=== PATIENT | male | born 1950 | race Caucasian/White ===

== ENCOUNTER → 2017-03-16 | Outpatient (CLI) | payer MEDICARE, OTHER ==
[~2017-03-16] MED LIST: AMLO5TAB2 PO; CYTRA PO; HYDR-3910 PO; LEVA1TAB2 PO; LIPI20TA PO; MULTCAP PO; OXYB5TAB10 PO; RANI150T PO; ROXI1TAB2 PO; SENO8.6T5 PO; TYLE650T25 PO; metoprolol OR
[2017-03-16 13:00] LABS: CREATININE FOR GFR 2.02 MG/DL (0.70-1.30); GLOMERULAR FILTRATION RATE 35.5 (>49)
== END ==
LOC: M SMT 10:31
PROVIDERS: ATTEND Urology
DX: N13.5 Crossing vessel and stricture of ureter without hydronephrosis (principal)

== ENCOUNTER 2017-04-28 07:49 | Outpatient (RCR) | payer MEDICARE, OTHER | END 2017-04-29 | LOC: M PT 07:49 | PROVIDERS: ATTEND Family Medicine | DX: Z51.89 Encounter for other specified aftercare (principal); M75.42 Impingement syndrome of left shoulder | CPT/HCPCS: 97110; 97162; G8978; G8979 ==

== ENCOUNTER 2017-05-20 08:30 | Outpatient (RCR) | payer MEDICARE, OTHER | END 2017-05-29 | LOC: M PT 08:30 | PROVIDERS: ATTEND Family Medicine | DX: Z51.89 Encounter for other specified aftercare (principal); M25.512 Pain in left shoulder; M75.42 Impingement syndrome of left shoulder | CPT/HCPCS: 97110; G8978; G8979; G8980 ==

== ENCOUNTER 2017-07-19 09:40 | Day surgery (SDC) | payer MEDICARE, OTHER ==
[~2017-07-19] VITALS: Ht 175.3 cm; Wt 90.3 kg
[~2017-07-19 09:40] MED LIST changes: +CHLO25TA PO; +CYTRA 2 PO; +FAMO40TA3 PO; +LISI-542 PO; +METO1TAB7 PO; +POTA1TAB14 PO; +VITATAB11 PO
[2017-07-19] MEDS ORDERED: NS 1,000 ML IV ONE (10:00)
[2017-07-19] MEDS ORDERED: LIDOCAINE 2% INJ 100 MG/5 ML SDV (FOR ANES.) As Ordered ONE (11:21)
[2017-07-19] MEDS ORDERED: PROPOFOL 200 MG/20 ML VIAL As Ordered ONE ×2 (11:21→11:30)
--- NOTE | 2017-07-19 11:40 | ROOR ---
Patient Name: Avni De Jesus Procedure Date: 07/19/2017 11:16 AM Date of : 1950 Age: 66 Room: [facility] Gender: Male Note Status: Finalized Procedure: Total Colonoscopy to Cecum Indications: Colon cancer screening in patient at increased risk: Colorectal cancer in brother, High risk colon cancer surveillance: Personal history of colonic polyps, Last colonoscopy: 2011 Providers: Law Carrera MD Referring MD: MILTON ROSE MD Requesting Provider: Medicines: Monitored Anesthesia Care Complications: No immediate complications. Procedure: Pre-Anesthesia Assessment: - The heart rate, respiratory rate, oxygen saturations, blood pressure, adequacy of pulmonary ventilation, and response to care were monitored throughout the procedure. The Colonoscope was introduced through the anus and advanced to the cecum, identified by appendiceal orifice and ileocecal valve. The colonoscopy was performed without difficulty. The patient tolerated the procedure well. The quality of the bowel preparation was excellent. Findings: The perianal and digital rectal examinations were normal. Non-bleeding internal hemorrhoids were found during retroflexion. The hemorrhoids were small and Grade I (internal hemorrhoids that do not prolapse). There was a medium-sized lipoma, at 10 cm proximal to the anus. The exam was otherwise without abnormality. Impression: - Non-bleeding internal hemorrhoids. - Medium-sized lipoma at 10 cm proximal to the anus. - The examination was otherwise normal. - No specimens collected. - The exam was otherwise normal to the cecum. Recommendation: - Patient has a contact number available for emergencies. The signs and symptoms of potential delayed complications were discussed with the patient. Return to normal activities tomorrow. Written discharge instructions were provided to the patient. - High fiber diet. - Discharge patient to home. - Continue present medications. - Repeat colonoscopy in 5 years for screening purposes. - Return to referring physician. - The findings and recommendations were discussed with the patient's family. Law Carrera MD Law Carrera MD 07/19/2017 11:40:25 AM This report has been signed electronically. Number of Addenda: 0 Note Initiated On: 07/19/2017 11:16 AM Estimated Blood Loss: Estimated blood loss: none.
[2017-07-19 11:55] VITALS: BP 123/74
== END 2017-07-19 12:10 | disposition home or self-care (01) ==
LOC: M OPP 09:40
PROVIDERS: ATTEND Internal Medicine Gastroenterology
DX: Z12.11 Encounter for screening for malignant neoplasm of colon (principal); Z86.010 Personal history of colon polyps; Z80.0 Family history of malignant neoplasm of digestive organs; D17.5 Benign lipomatous neoplasm of intra-abdominal organs; K64.0 First degree hemorrhoids; K21.9 Gastro-esophageal reflux disease without esophagitis; I10 Essential (primary) hypertension; E78.00 Pure hypercholesterolemia, unspecified; Z87.891 Personal history of nicotine dependence; Z79.899 Other long term (current) drug therapy

== ENCOUNTER → 2017-10-27 | Outpatient (CLI) | payer MEDICARE, OTHER ==
[2017-10-27 13:47] LABS: ANION GAP 6 MEQ/L (8-16); APPEARANCE, URINE CLEAR (CLEAR); BACTERIA, URINE AUTO NEGATIVE (NEGATIVE); BILIRUBIN, URINE AUTO NEGATIVE (NEGATIVE); BLOOD UREA NITROGEN 33 MG/DL (7-18); BLOOD, URINE BLOOD NEGATIVE (NEGATIVE); CARBON DIOXIDE LEVEL 31 MEQ/L (21-32); CHLORIDE LEVEL 102 MEQ/L (98-107); COLOR, URINE YELLOW (YELLOW); GLUCOSE, FASTING 101 MG/DL (70-100); GLUCOSE, URINE (UA) AUTO NEGATIVE (NEGATIVE); KETONE, URINE AUTO NEGATIVE (NEGATIVE); LEUKOCYTE ESTERASE, URINE AUTO NEGATIVE (NEGATIVE); NITRITE, URINE AUTO NEGATIVE (NEGATIVE); PROTEIN, URINE AUTO NEGATIVE (NEGATIVE); PSA SCREENING 0.47 NG/ML (< 4.0); RBC, URINE AUTO 0 /HPF (0-3); SODIUM LEVEL 139 MEQ/L (136-145); SPECIFIC GRAVITY URINE AUTO 1.014 (1.002-1.035); SQUAMOUS EPITHELIAL CELL UR AU 0 /HPF (0-6); UROBILINOGEN, URINE AUTO 0.2 mg/dL (0.0-2.0); WBC, URINE AUTO 0 /HPF (0-3)
== END ==
LOC: M SMT 09:39
DX: N13.1 Hydronephrosis with ureteral stricture, not elsewhere classified (principal); Z87.448 Personal history of other diseases of urinary system; Z12.5 Encounter for screening for malignant neoplasm of prostate
CPT/HCPCS: 80048

== ENCOUNTER → 2017-12-22 | Outpatient (CLI) | payer MEDICARE, OTHER | LOC: M RAD 07:41 | DX: Z12.2 Encounter for screening for malignant neoplasm of respiratory organs (principal); Z87.891 Personal history of nicotine dependence | CPT/HCPCS: G0297 ==

== ENCOUNTER → 2018-06-09 | Outpatient (CLI) | payer MEDICARE, OTHER | LOC: M RAD 06:52 | DX: I71.4 Abdominal aortic aneurysm, without rupture (principal) | CPT/HCPCS: 76775 ==

== ENCOUNTER → 2018-12-21 | Outpatient (CLI) | payer MEDICARE, OTHER ==
[~2018-12-21] MED LIST changes: -AMLO5TAB2 PO; +AMLO5TAB6 PO
[2018-12-21 10:44] LABS: HEMATOCRIT 47.8 % (42.0-52.0); MEAN CORPUSCULAR HEMOGLOBIN 30.9 pg (27.0-33.0); MEAN CORPUSCULAR HGB CONC 33.5 g/dl (32.0-36.5); MEAN CORPUSCULAR VOLUME 92.5 fl (80.0-96.0); PLATELET COUNT, AUTOMATED 177 10^3/uL (150-450); RED BLOOD COUNT 5.17 10^6/uL (4.30-6.10); WHITE BLOOD COUNT 4.9 10^3/uL (4.0-10.0)
[2018-12-21 10:46] LABS: APPEARANCE, URINE CLEAR (CLEAR); BACTERIA, URINE AUTO NEGATIVE (NEGATIVE); BILIRUBIN, URINE AUTO NEGATIVE (NEGATIVE); BLOOD, URINE BLOOD 1+ (NEGATIVE); COLOR, URINE YELLOW (YELLOW); GLUCOSE, URINE (UA) AUTO NEGATIVE (NEGATIVE); KETONE, URINE AUTO NEGATIVE (NEGATIVE); LEUKOCYTE ESTERASE, URINE AUTO NEGATIVE (NEGATIVE); NITRITE, URINE AUTO NEGATIVE (NEGATIVE); PROTEIN, URINE AUTO NEGATIVE (NEGATIVE); RBC, URINE AUTO 2 /HPF (0-3); SPECIFIC GRAVITY URINE AUTO 1.012 (1.002-1.035); SQUAMOUS EPITHELIAL CELL UR AU 0 /HPF (0-6); UROBILINOGEN, URINE AUTO 0.2 mg/dL (0.0-2.0); WBC, URINE AUTO 0 /HPF (0-3)
[2018-12-21 10:52] LABS: CALCIUM LEVEL 9.6 MG/DL (8.8-10.2); CREATININE FOR GFR 1.74 MG/DL (0.70-1.30); GLOMERULAR FILTRATION RATE 41.9 (>49); POTASSIUM SERUM 4.4 MEQ/L (3.5-5.1); PROSTATIC SPECIFIC AG MONITOR 0.45 NG/ML (< 4.00)
== END ==
LOC: M SMT 08:04
PROVIDERS: ATTEND Nurse Practitioner Women's Health
DX: N13.1 Hydronephrosis with ureteral stricture, not elsewhere classified (principal); Z85.46 Personal history of malignant neoplasm of prostate

== ENCOUNTER → 2019-01-03 | Outpatient (CLI) | payer MEDICARE, OTHER ==
--- NOTE | 2019-01-03 09:21 | REP ---
ULTRASOUND ABDOMINAL AORTA: Real-time sonographic evaluation of the abdominal aorta performed. COMPARISON: 06/09/2018 Distal abdominal aorta has a maximum diameter of 4.5 cm, essentially unchanged. Proximally, the abdominal aorta has AP diameter of 2.6 cm and mid aspect 2.3 cm. Common iliac arteries are mildly ectatic both measuring 1.3 cm in AP dimension. The abdominal aorta at the level of the renal arteries could not be visualized. IMPRESSION: No change in aneurysmal dilatation of distal abdominal aorta with maximum AP diameter 4.5 cm. Electronically Signed by Varghese Friedman MD 01/04/2019 02:39 P
== END ==
LOC: M RAD 06:03
PROVIDERS: ATTEND Surgery Vascular Surgery
DX: I71.4 Abdominal aortic aneurysm, without rupture (principal)

== ENCOUNTER → 2019-01-03 | Outpatient (CLI) | payer MEDICARE, OTHER ==
--- NOTE | 2019-01-03 10:05 | REP ---
CT ABDOMEN PELVIS WITHOUT IV OR ORAL CONTRAST: HISTORY: Kidney stone. Flank pain. The patient is status post right ureteral resection and ureteroneocystostomy. COMPARISON CT STUDY: December 07, 2017. CT FINDINGS: Preliminary digital stained glass glazier helper radiograph demonstrates an unremarkable bowel gas pattern. The lung bases are unremarkable. No pleural effusion is seen. There are multiple stable benign cysts in the liver dispersed in the left and right lobes. Gallbladder is unremarkable. There is an undigested somewhat opaque tablet in the of the gastric antrum. No pancreatic abnormality is observed. The spleen is unremarkable. There is significant diffuse cortical atrophy affecting the right kidney again seen. Renal length measurement is 6.6 cm on sagittal images. No hydronephrosis is seen. No ureteral mass lesion is observed. The left kidney contains multiple cysts. The largest of these is laterally at mid pole position measuring 3.7 cm. There are numerous intrarenal calculi in the left kidney in the lower pole collecting system. These number 7-8. The largest of these measures 5 mm in greatest diameter. There is no evidence of hydronephrosis on the left. Some vascular calcification is also noted. The infrarenal abdominal aortic aneurysm has increased in size in the interval since December 07, 2017 currently measuring 4.3 cm in AP dimension; previously 3.9 cm. Vascular calcification is noted. Prostate calcifications are noted. Urinary bladder is unremarkable. Some lipomatous changes are seen in the spermatic cords bilaterally. No hernia is appreciated. Normal appendix is seen. Bone window settings show no bony destructive lesion. IMPRESSION: Intrarenal nephrolithiasis left kidney without hydronephrosis. Multiple stones. Multiple left renal cyst. Atrophy of the right kidney as before. Increase in the size of the infrarenal abdominal aortic aneurysm, now 4.3 cm in AP dimension. Electronically Signed by Ovi Theodore MD 01/03/2019 10:45 A
== END ==
LOC: M RAD 05:59
PROVIDERS: ATTEND Urology
DX: N20.0 Calculus of kidney (principal); N26.1 Atrophy of kidney (terminal); N28.1 Cyst of kidney, acquired; I51.7 Cardiomegaly

== ENCOUNTER → 2019-07-07 | Outpatient (CLI) | payer MEDICARE, OTHER ==
--- NOTE | 2019-07-07 08:26 | REP ---
Abdominal aorta ultrasound: Comparison is 01/03/2019. Abdominal Aortic Measurements are as follows: Proximal 2.7 cm AP 3.1 cm TRV Renal Artery Level 2.1 cm AP 2.8 cm TRV Mid Aorta 2.2 cm AP 2.5 cm TRV Distal Aorta 4.7 cm AP 4.8 cm TRV R Iliac Artery 1.2 cm AP 1.2 cm TRV L Iliac Artery 1.2 cm AP 1.4 cm TRV There is no abdominal aortic aneurysm of the distal aorta extending to the bifurcation measuring 4.7 cm AP diameter by 4.8 cm transverse diameter and spanning a craniocaudad length of 4.0 cm. On the comparison study dated 01/13/2019, the aneurysm measured 4.5 cm by 3.6 cm and spanned a craniocaudad length of 4.0 cm. Electronically Signed by Varghese Hart MD 07/07/2019 08:19 A
== END ==
LOC: M RAD 06:29
PROVIDERS: ATTEND Physician Assistant
DX: I71.4 Abdominal aortic aneurysm, without rupture (principal)

== ENCOUNTER → 2019-07-07 | Outpatient (CLI) | payer MEDICARE, OTHER ==
--- NOTE | 2019-07-07 09:06 | REP ---
LOW-DOSE CT CHEST WITHOUT CONTRAST: Screening exam. HISTORY: Personal history of nicotine dependence. COMPARISON STUDY: 12/22/2017. Comparison chest CT study is also reviewed from February 25, 2015. The lung parenchyma remains clear. No mass, infiltrate, or significant pulmonary nodule is appreciated. There is minimal linear fibrosis in the lingula. Vascular calcification is seen along the course of the left coronary artery and in the transverse aorta. IMPRESSION: Lung RADS category 1 negative findings. Repeat screening study recommended in 1 year. Electronically Signed by Ovi Theodore MD 07/07/2019 10:05 A
== END ==
LOC: M RAD 06:32
PROVIDERS: ATTEND Family Medicine
DX: Z12.2 Encounter for screening for malignant neoplasm of respiratory organs (principal); Z87.891 Personal history of nicotine dependence; I71.4 Abdominal aortic aneurysm, without rupture
CPT/HCPCS: 76775; G0297

== ENCOUNTER → 2019-07-21 | Outpatient (CLI) | payer MEDICARE, OTHER ==
--- NOTE | 2019-07-21 19:10 | REP ---
CT abdomen and pelvis without IV or oral contrast: History: Abdominal aortic aneurysm without rupture. Comparison CT study January 03, 2019. CT findings: There are multiple left and right lobe hepatic cysts again noted unchanged. No splenic lesion is seen. No adrenal abnormalities observed. No abnormalities noted in the pancreas. The gallbladder is small and contracted. There is marked atrophy of the right kidney again noted. There are cysts affecting the left kidney. There are is intrarenal nephrolithiasis in the lower pole left kidney without hydronephrosis. Two intrarenal calculi are seen on the right as well. There is a saccular aneurysm of the distal abdominal aorta just above its bifurcation which measures 4.5 cm in greatest anteroposterior dimension today. Previously this was 4.3 cm. The abdominal aorta remains tortuous and heavily calcified. The common iliac arteries and calcific but not aneurysmal. No ryan aneurysmal hemorrhage or fibrosis is appreciated. Small and large intestinal bowel loops are unremarkable. There are dystrophic calcifications in the prostate. No bony destructive lesion is seen. Impression: Saccular aneurysm of the distal abdominal aorta just above its bifurcation 4.5 cm in greatest AP dimension today. 4.3 cm most recently 01/03/2019. At the time of the December 07, 2017 study the aneurysm measured 3.9 cm in greatest diameter. It appears to be gradually enlarging. It seems to be expanding along its posterior and right posterolateral wall. Electronically Signed by Ovi Theodore MD 07/22/2019 12:35 P
== END ==
LOC: M RAD 16:29
PROVIDERS: ATTEND Physician Assistant
DX: I71.4 Abdominal aortic aneurysm, without rupture (principal); K76.89 Other specified diseases of liver; N28.1 Cyst of kidney, acquired

== ENCOUNTER → 2019-08-01 | Outpatient (CLI) | payer MEDICARE, OTHER ==
--- NOTE | 2019-08-01 15:56 | REP ---
Clinical: Cough and fever. Mycoplasma exposure. Comparison: 05/21/2015 . Technique: PA and lateral. Findings: The mediastinum and cardiac silhouette are normal. The lung fajardo are clear and without acute consolidation, effusion, or pneumothorax. Small incidental calcified right infrahilar lymph nodes suspected. The skeletal structures are intact and normal. Impression: 1. No acute cardiopulmonary process. Electronically Signed by Rohan Winkler MD 08/01/2019 03:47 P
== END ==
LOC: M LRY 15:17
PROVIDERS: ATTEND Physician Assistant
DX: R05 Cough (principal); Z20.89 Contact with and (suspected) exposure to other communicable diseases
CPT/HCPCS: 71046; 87109; G0463

== ENCOUNTER 2019-09-02 11:59 | Day surgery (SDC) | payer MEDICARE, OTHER ==
[2019-09-02] VITALS (7 sets, daily range): BP systolic 127–149; BP diastolic 74–92
[~2019-09-02] VITALS: Ht 175.3 cm; Wt 96.5 kg
[2019-09-02] MEDS ORDERED: POTA4.25 PO (12:35)
[2019-09-02] MEDS ORDERED: FLOM0.4C39 PO (12:35)
[2019-09-02] MEDS ORDERED: ONDANSETRON 4MG/2ML VIAL (J2405) IV ONE (13:00)
[2019-09-02 13:13] LABS: BASO # 0.1 10^3/uL (0.0-0.2); BASO % 0.6 % (0.0-1.0); EOS # 0.1 10^3/uL (0.0-0.5); EOS % 0.6 % (0.0-3.0); LYMPH # 1.2 10^3/uL (1.5-5.0); LYMPH % 13.3 % (24.0-44.0); MEAN CORPUSCULAR HEMOGLOBIN 30.4 pg (27.0-33.0); MEAN CORPUSCULAR HGB CONC 33.1 g/dl (32.0-36.5); MEAN CORPUSCULAR VOLUME 91.7 fl (80.0-96.0); MONO # 0.7 10^3/uL (0.0-0.8); MONO % 7.4 % (0.0-5.0); NEUTROPHILS # 7.1 10^3/uL (1.5-8.5); NEUTROPHILS % 77.9 % (36.0-66.0); PLATELET COUNT, AUTOMATED 176 10^3/uL (150-450); RED BLOOD COUNT 5.89 10^6/uL (4.30-6.10)
[2019-09-02 13:16] LABS: HEMOGLOBIN 17.9 g/dl (13.5-17.5)
[2019-09-02 13:29] LABS: ALBUMIN 4.4 GM/DL (3.2-5.2); BILIRUBIN,DIRECT 0.4 MG/DL (0.0-0.2); BILIRUBIN,TOTAL 1.5 MG/DL (0.2-1.0)
[2019-09-02 13:54] LABS: CALCIUM LEVEL 9.8 MG/DL (8.8-10.2); CREATININE FOR GFR 1.91 MG/DL (0.70-1.30); GLOMERULAR FILTRATION RATE 37.5 (>49)
[2019-09-02] MEDS ORDERED: NS 1,000 ML IV ONE (14:00)
[2019-09-02] MEDS ORDERED: MORPHINE 2 MG/ML 1ML VIAL (J2270) IV ONE (14:00)
[2019-09-02] MEDS ORDERED: PIPERACILLIN/TAZOBACTAM SOD 3.375 GM in D5W MINI-BAG PLUS 50 ML IV ONE (15:00)
--- NOTE | 2019-09-02 15:04 | REP ---
CT ABDOMEN AND PELVIS WITHOUT IV OR ORAL CONTRAST: HISTORY: Right lower quadrant pain elevated lipase. Elevated creatinine. Comparison CT study July 21, 2019. CT FINDINGS: Digital preliminary jawbone puller radiograph is unremarkable. The lung bases show minimal linear fibrosis in the right lower lobe. There are low-density areas in the left right and right lobe of the liver consistent with cysts. These are unchanged. No hepatic mass lesion is seen. No abnormalities noted in the gallbladder or within the pancreas. Spleen is unremarkable. No adrenal lesion is seen. There is marked atrophy of the right kidney again noted. There is intrarenal nephrolithiasis in the right kidney but no evidence of hydronephrosis. Several small calculi are seen in the right kidney. There are scattered parapelvic cysts affecting the left kidney. Intrarenal nephrolithiasis is seen in the left kidney as well. No left-sided hydronephrosis is seen. There is an infrarenal abdominal aortic aneurysm again noted. This measures 4.5 cm in AP dimension unchanged from the most recent prior CT study of July 21, 2019. It was noted to measure 4.3 cm on January 03, 2019 and 3.9 cm in AP dimension on December 07, 2017. The common iliac arteries are calcified but not aneurysmal. Urinary bladder is unremarkable. Seminal vesicles and prostate show no abnormality. In the right lower quadrant, the appendix is enlarged, contains an appendicolith, and shows periappendiceal fluid and edema. These findings are consistent with acute appendicitis. No abscess or free air is seen. The appendix findings are new when compared with the July 21, 2019 prior study. There is fatty hypertrophy of the spermatic cords bilaterally. IMPRESSION: 1. Findings consistent with early acute appendicitis. No evidence of abscess or free air. There is appendiceal inflammation and dilation. An appendicolith is present. 2. 4.5 cm infrarenal abdominal aortic aneurysm. 3. Bilateral intrarenal nephrolithiasis. No hydronephrosis seen. Right renal atrophy. Left renal cysts. Electronically Signed by Ovi Theodore MD 09/02/2019 04:15 P
[2019-09-02] MEDS ORDERED: ATOR40TA75 PO (15:17)
[2019-09-02] MEDS ORDERED: OXYB10TA2 PO (15:17)
[2019-09-02] MEDS ORDERED: VITATAB31 PO (15:17)
[2019-09-02] MEDS ORDERED: MAPA500T2 PO (15:17)
[2019-09-02] MEDS ORDERED: CVS1CAP5 PO (15:19)
[2019-09-02] MEDS ORDERED: ZYLO300T6 PO (15:19)
[2019-09-02] MEDS ORDERED: MAGN64TA3 PO (15:19)
[2019-09-02] MEDS ORDERED: BUPIVACAINE/EPIN 0.25% 30 ML VIAL As Ordered ONE (16:02)
[2019-09-02] MEDS ORDERED: PROPOFOL 200 MG/20 ML VIAL As Ordered ONE ×2 (16:06→17:43)
[2019-09-02] MEDS ORDERED: LIDOCAINE 2% INJ 100 MG/5 ML SDV (FOR ANES.) As Ordered ONE (16:06)
[2019-09-02] MEDS ORDERED: ROCURONIUM BROMIDE 50 MG/5 ML VIAL As Ordered ONE (16:06)
[2019-09-02] MEDS ORDERED: fentaNYL 100 MCG/2 ML INJECTION (J3010) As Ordered ONE ×3 (16:07→17:53)
[2019-09-02] MEDS ORDERED: MIDAZOLAM INJ 2 MG/2 ML VIAL (J2250) As Ordered ONE (16:07)
[2019-09-02] MEDS ORDERED: dexameTHASONE 4 MG/ML 1ML VIAL (J1100) As Ordered ONE (16:08)
[2019-09-02] MEDS ORDERED: ONDANSETRON 4MG/2ML VIAL (J2405) As Ordered ONE (16:08)
[2019-09-02] MEDS ORDERED: PHENYLephrine HCL 500 MCG/5 ML (100MCG/ML) SYRINGE (J2370) As Ordered ONE (17:02)
[2019-09-02] MEDS ORDERED: ACETAMINOPHEN 1000MG 100ML IV BTL (OFIRMEV) (J0131 PER 10MG) As Ordered ONE (17:21)
[2019-09-02] MEDS ORDERED: SUGAMMADEX SODIUM 500 MG/5 ML VIAL (BRIDION) As Ordered ONE (17:25)
[2019-09-02] MEDS ORDERED: ULTRACET TAB PO PRN (17:45)
[2019-09-02] MEDS ORDERED: IPRATROPIUM 0.5MG/ALBUTEROL 2.5MG INH SOL UD 3ML (DUONEB)(J7620) NEB PRN (17:45)
[2019-09-02] MEDS ORDERED: ONDANSETRON 4MG/2ML VIAL (J2405) IV PRN ×2 (17:45→18:45)
[2019-09-02] MEDS ORDERED: traMADol 50 MG TAB PO PRN (17:45)
[2019-09-02] MEDS ORDERED: MORPHINE 2 MG/ML 1ML VIAL (J2270) IV PRN (17:45)
[2019-09-02] MEDS ORDERED: ACETAMINOPHEN 500 MG TAB PO PRN (17:45)
[2019-09-02] MEDS ORDERED: NORCO, ANEXSIA 5/325MG TABLET (HYDROcodone/ACETAMINOPHEN) PO PRN (17:45)
[2019-09-02] MEDS ORDERED: LABETALOL HCL 100 MG/20 ML VIAL As Ordered ONE (17:51)
[2019-09-02] MEDS ORDERED: NS 1,000 ML IV SCH (18:00)
[2019-09-02] MEDS ORDERED: fentaNYL 100 MCG/2 ML INJECTION (J3010) IV PRN (18:45)
[2019-09-02] MEDS ORDERED: PERCOCET 5MG/325MG TAB PO PRN (18:45)
[2019-09-02] MEDS ORDERED: MEPERIDINE INJ 25 MG/ML VIAL (J2175) IV PRN (18:45)
[2019-09-02] MEDS ORDERED: METOCLOPRAMIDE INJ 10MG/2ML VIAL (J2765) IV PRN (18:45)
[2019-09-02] MEDS ORDERED: LR 1,000 ML IV SCH (18:45)
[2019-09-02] MEDS: IPRATROPIUM 0.5MG/ALBUTEROL 2.5MG INH SOL UD 3ML (DUONEB)(J7620) NEB SCH (20:00)
[2019-09-02] MEDS ORDERED: ATORVASTATIN 20 MG TAB PO SCH (21:00)
[2019-09-02] MEDS ORDERED: oxyBUTYnin *DITROPAN XL* 5 MG TABCR PO SCH (21:00)
[2019-09-02] MEDS ORDERED: CHLORTHALIDONE 25 MG TAB PO SCH (21:00)
[2019-09-02] MEDS ORDERED: TAMSULOSIN 0.4 MG CAP PO SCH (21:00)
[2019-09-02] MEDS: POTASSIUM CHLORIDE 10 MEQ SR TABLET PO SCH (21:17)
[2019-09-02] MEDS: PIPERACILLIN/TAZOBACTAM SOD 3.375 GM in D5W MINI-BAG PLUS 50 ML IV SCH (21:17)
[2019-09-03 02:00] VITALS: BP 117/68
[2019-09-03] MEDS: PIPERACILLIN/TAZOBACTAM SOD 3.375 GM in D5W MINI-BAG PLUS 50 ML IV SCH ×2 (02:29→08:31)
[2019-09-03] MEDS: IPRATROPIUM 0.5MG/ALBUTEROL 2.5MG INH SOL UD 3ML (DUONEB)(J7620) NEB SCH ×2 (02:31→08:00)
[2019-09-03 06:00] VITALS: BP 135/76
[2019-09-03 06:22] LABS: CREATININE FOR GFR 1.85 MG/DL (0.70-1.30); GLOMERULAR FILTRATION RATE 38.9 (>49); POTASSIUM SERUM 4.4 MEQ/L (3.5-5.1)
[2019-09-03] MEDS: POTASSIUM CHLORIDE 10 MEQ SR TABLET PO SCH (08:30)
[2019-09-03 08:31] VITALS: BP 146/83
[2019-09-03] MEDS ORDERED: METOPROLOL SUCC (TopROL XL) 50MG **XL** TAB PO SCH (09:00)
[2019-09-03] MEDS ORDERED: PANTOPRAZOLE 40MG TAB (PROTONIX) PO SCH (09:00)
[2019-09-03] MEDS ORDERED: amLODIPine 5 MG TAB PO SCH (09:00)
[2019-09-03] MEDS ORDERED: TRAM50TA2 PO (09:35)
[2019-09-03 10:00] VITALS: BP 146/83
[2019-09-03] MEDS ORDERED: allopurinoL 300 MG TAB PO SCH (12:00)
== END 2019-09-03 10:41 | disposition home or self-care (01) ==
LOC: M ED 11:59 → M SDC 15:30 → M MSPAV 18:34 → M SDC 09-03 10:41
PROVIDERS: ATTEND Surgery
DX: K35.890 Other acute appendicitis without perforation or gangrene (principal); E78.49 Other hyperlipidemia; I10 Essential (primary) hypertension; Z79.899 Other long term (current) drug therapy; K21.9 Gastro-esophageal reflux disease without esophagitis; Z85.46 Personal history of malignant neoplasm of prostate; N18.9 Chronic kidney disease, unspecified
CPT/HCPCS: 36415; 44970; 74176; 80048; 80076; 81001; 83690; 85025; 88304; 94640; 96361; 96365; 96366; 96375; 99284; J0131; J1100; J2250; J2370; J2405; J2543; J3010

== ENCOUNTER → 2019-09-13 | Outpatient (REF) | payer MEDICARE, OTHER ==
[~2019-09-13] MED LIST changes: +ATOR40TA75 PO; +CVS1CAP5 PO; +FLOM0.4C39 PO; +MAGN64TA3 PO; +MAPA500T2 PO; +OXYB10TA23 PO; +POTA4.25 PO; +TRAM50TA2 PO; +VITATAB31 PO; +ZYLO300T6 PO
== END ==
LOC: M LAB REF 13:42
PROVIDERS: ATTEND Surgery
DX: D22.71 Melanocytic nevi of right lower limb, including hip (principal)

== ENCOUNTER 2019-10-15 09:39 | Emergency (ER) | payer MEDICARE, OTHER ==
[~2019-10-15] VITALS: Ht 172.7 cm; Wt 93.2 kg
[2019-10-15 11:00] LABS: BASO % 0.8 % (0.0-1.0); EOS # 0.1 10^3/uL (0.0-0.5); EOS % 1.3 % (0.0-3.0); HEMOGLOBIN 17.4 g/dl (13.5-17.5); LYMPH # 1.2 10^3/uL (1.5-5.0); LYMPH % 23.1 % (24.0-44.0); MEAN CORPUSCULAR HEMOGLOBIN 30.7 pg (27.0-33.0); MEAN CORPUSCULAR HGB CONC 33.3 g/dl (32.0-36.5); MEAN CORPUSCULAR VOLUME 92.2 fl (80.0-96.0); MONO # 0.5 10^3/uL (0.0-0.8); MONO % 9.1 % (0.0-5.0); NEUTROPHILS # 3.5 10^3/uL (1.5-8.5); NEUTROPHILS % 65.1 % (36.0-66.0); PLATELET COUNT, AUTOMATED 201 10^3/uL (150-450); RED BLOOD COUNT 5.67 10^6/uL (4.30-6.10); WHITE BLOOD COUNT 5.3 10^3/uL (4.0-10.0)
[2019-10-15] MEDS: GASTROGRAFIN SOLUTION 30ML PO SCH ×2 (11:09→11:39)
[2019-10-15 11:13] LABS: AMORPHOUS SEDIMENT SMALL (NEGATIVE); APPEARANCE, URINE HAZY (CLEAR); BACTERIA, URINE AUTO NEGATIVE (NEGATIVE); BILIRUBIN, URINE AUTO NEGATIVE (NEGATIVE); BLOOD, URINE BLOOD NEGATIVE (NEGATIVE); COLOR, URINE YELLOW (YELLOW); GLUCOSE, URINE (UA) AUTO NEGATIVE (NEGATIVE); KETONE, URINE AUTO NEGATIVE (NEGATIVE); LEUKOCYTE ESTERASE, URINE AUTO NEGATIVE (NEGATIVE); NITRITE, URINE AUTO NEGATIVE (NEGATIVE); PROTEIN, URINE AUTO NEGATIVE (NEGATIVE); RBC, URINE AUTO 4 /HPF (0-3); SPECIFIC GRAVITY URINE AUTO 1.013 (1.002-1.035); SQUAMOUS EPITHELIAL CELL UR AU 0 /HPF (0-6); UROBILINOGEN, URINE AUTO 0.2 mg/dL (0.0-2.0); WBC, URINE AUTO 1 /HPF (0-3)
[2019-10-15 11:14] LABS: HEMATOCRIT 52.3 % (42.0-52.0)
[2019-10-15 11:16] LABS: CALCIUM LEVEL 9.7 MG/DL (8.8-10.2); CREATININE FOR GFR 1.85 MG/DL (0.70-1.30); GLOMERULAR FILTRATION RATE 38.9 (>49); POTASSIUM SERUM 3.4 MEQ/L (3.5-5.1)
--- NOTE | 2019-10-15 12:42 | REP ---
Clinical: Right groin pain. Technique: Axial images from the lung bases to the pubic symphysis using oral contrast material (per protocol) with coronal and sagittal re-formations. Comparison: 09/02/2019. Findings: Hepatic hypodensities remain stable and likely represent cysts and possible hemangioma. Spleen, pancreas, gallbladder, bilateral adrenal glands are normal. Atrophic appearance to the right kidney, compensatory enlargement to the left kidney, and simple/complex renal cysts along with nephrolithiasis and chronic dilatation to the mid/distal right ureter remains stable. Evaluation of the enteric system demonstrates evidence of prior appendectomy and scattered diverticulosis without acute diverticulitis. No bowel obstruction is appreciated. A moderate right inguinal hernia is identified and a small amount of trapped fluid versus very subtle early nonobstructed loop of bowel just entering the proximal most portion of the hernia cannot be differentiated. There is no associated acute inflammatory change. A small fat containing left inguinal hernia is also identified. Pelvis demonstrates relatively normal bladder and mild prostatomegaly. No ascites. No free air. No adenopathy. Stable 4.5 cm infrarenal abdominal aortic aneurysm again identified. Skeletal structures demonstrate age-related changes without focal abnormality. Lung bases are clear. Impression: 1. Bilateral inguinal hernias as described above. The right hernia demonstrates small amount of trapped fluid versus very early bowel hernia but without surrounding inflammatory change to suggest acute process. Left inguinal hernia contains fat without fluid or bowel. 2. Further stable chronic nonacute findings as described above. 3. Prostatomegaly. 4. Stable infrarenal abdominal aortic aneurysm. 5. Stable appearance of the bilateral kidneys. Electronically Signed by Rohan Winkler MD 10/15/2019 12:34 P
[2019-10-15 14:35] VITALS: BP 143/88
== END 2019-10-15 14:38 | disposition home or self-care (01) ==
LOC: M ED 09:39
DX: K40.90 Unilateral inguinal hernia, without obstruction or gangrene, not specified as recurrent (principal); I10 Essential (primary) hypertension; E78.5 Hyperlipidemia, unspecified; Z87.442 Personal history of urinary calculi; Z85.46 Personal history of malignant neoplasm of prostate; K21.9 Gastro-esophageal reflux disease without esophagitis; I71.4 Abdominal aortic aneurysm, without rupture; N40.0 Benign prostatic hyperplasia without lower urinary tract symptoms; Z79.899 Other long term (current) drug therapy
CPT/HCPCS: 74176; 80048; 81001; 85025; 99284; Q9963

== ENCOUNTER 2019-12-22 06:08 | Day surgery (SDC) | payer MEDICARE, OTHER ==
[~2019-12-22] VITALS: Ht 175.3 cm; Wt 92.1 kg
[~2019-12-22 06:08] MED LIST changes: +LIDOCAINE 1% MDV 20ML VIAL SQ PRN
[2019-12-22] MEDS ORDERED: ceFAZolin SOD 1 GM in D5W MINI-BAG PLUS 50 ML IV ONE (06:15)
[2019-12-22] MEDS ORDERED: LR 1,000 ML IV ONE (06:15)
[2019-12-22] MEDS ORDERED: ROCURONIUM BROMIDE 50 MG/5 ML VIAL As Ordered ONE (07:14)
[2019-12-22] MEDS ORDERED: fentaNYL 250 MCG/5 ML INJECTION (J3010) As Ordered ONE (07:14)
[2019-12-22] MEDS ORDERED: propofoL 200 MG/20 ML VIAL As Ordered ONE (07:14)
[2019-12-22] MEDS ORDERED: LIDOCAINE 2% 100MG/5ML SDV (FOR ANES.) As Ordered ONE (07:14)
[2019-12-22] MEDS ORDERED: BUPIVACAINE/EPIN 0.5% 30 ML VIAL As Ordered ONE (07:14)
[2019-12-22] MEDS ORDERED: MIDAZOLAM INJ 2MG/2ML VIAL (J2250 PER 1MG) As Ordered ONE (07:15)
[2019-12-22] MEDS ORDERED: LACRILUBE (AKWA TEARS) OPHTH OINT 3.5 GM As Ordered ONE (07:54)
[2019-12-22] MEDS ORDERED: ePHEDrine SULFATE 25 MG/5 ML(5MG/ML) SYRINGE As Ordered ONE (07:59)
[2019-12-22] MEDS ORDERED: SUCCINYLCHOLINE 100 MG/5 ML SYRINGE (J0330) As Ordered ONE (07:59)
[2019-12-22] MEDS ORDERED: KETOROLAC 60 MG/2 ML VIAL As Ordered ONE (09:37)
[2019-12-22] MEDS ORDERED: ONDANSETRON 4MG/2ML VIAL As Ordered ONE (09:37)
[2019-12-22] MEDS ORDERED: dexameTHASONE 4 MG/ML 1ML VIAL (J1100 PER 1MG) As Ordered ONE (09:37)
[2019-12-22] MEDS ORDERED: ACETAMINOPHEN 1000MG 100ML IV BTL (OFIRMEV) (J0131 PER 10MG) As Ordered ONE (09:37)
[2019-12-22] MEDS ORDERED: SUGAMMADEX SODIUM 500 MG/5 ML VIAL (BRIDION) As Ordered ONE (09:40)
[2019-12-22] MEDS ORDERED: ONDANSETRON 4MG/2ML VIAL IV PRN (10:15)
[2019-12-22] MEDS ORDERED: METOCLOPRAMIDE INJ 10MG/2ML VIAL (J2765 PER 1) IV PRN (10:15)
[2019-12-22] MEDS ORDERED: PERCOCET 5MG/325MG TAB PO PRN (10:15)
[2019-12-22] MEDS ORDERED: fentaNYL 100 MCG/2 ML INJECTION (J3010) IV PRN (10:15)
[2019-12-22] MEDS ORDERED: LR 1,000 ML IV SCH ×2 (10:15→10:30)
--- NOTE | 2019-12-22 10:16 | ECGEPIP ---
[facility] Test Date: 2019-12-22 Pat Name: POOJA SAINZ Department: Room: - Gender: Male Electronics Technician Apprentice: ALLISON : 1950 Requested By: VINCENT Ceballos Order Number: [id number] Reading MD: Terrell Gagnon Measurements Intervals [place] Rate: 80 P: 67 [place]: 199 QRS: 27 QRSD: 91 T: 28 QT: 355 QTc: 409 Interpretive Statements SINUS RHYTHM LOW QRS VOLTAGE IN EXTREMITY LEADS ANTEROSEPTAL MYOCARDIAL INFARCTION, OF INDETERMINATE AGE Similar to tracing done 05-21-15 but without ventricular ectopy Electronically Signed on 12-22-2019 10:15:52 EDT by Terrell Gagnon
--- NOTE | 2019-12-22 10:18 | RO ---
DATE OF PROCEDURE: 12/22/2019 PREOPERATIVE DIAGNOSIS: Bilateral inguinal hernia. POSTOPERATIVE DIAGNOSIS: Bilateral inguinal hernia. PROCEDURE: Robotic-assisted laparoscopic bilateral inguinal hernia repair with ProGrip mesh. SURGEON: Philip Bautista MD COTTON TIPPER: Isabela Bailey NP (provided retraction exposure, instrument exchange, mesh placement, and abdominal wall closure). ANESTHESIA: ESTIMATED BLOOD LOSS: Minimal. FLUIDS: Crystalloid. DISPOSITION: The patient was taken to the recovery room awake, alert, hemodynamic stable. Sponge and needle counts correct times two. BRIEF OPERATIVE SUMMARY: The patient was taken operating room, was given general anesthesia. After adequate anesthesia and preoperative antibiotics were given the patient was prepped and draped in sterile fashion. Next, a supraumbilical incision was made with skin knife. Blunt dissection was carried down to fascia and Veress needle placed into the abdominal cavity insufflated to 15 mm pressure. A dilating 8 mm trocar was placed at this time and under direct visualization the camera port was inserted. Then, two lateral 8 mm trocars were placed. There were some adhesions in the pelvis, which were taken down with the robot after the robot was docked and the patient was placed in Trendelenburg and essentially adhesions around the sigmoid colon up against the bladder, some additional omentum that was adherent in this area both on the left side and some minimal adhesions on the right. There were some further adhesions deep in the pelvis. These were not taken down and these with mostly posterior to the bladder. Next, the peritoneum was taken down on the left-hand side and eventually this was mobilized off the epigastric and then this was followed down to the hernia that was visualized. This did have a lipoma of the cord as well as a small hernia sac. The lipoma of cord was transected proximally and this was delivered out of the inguinal canal with cautery. The peritoneum was very attenuated overlying the cord structures but this was able to be mobilized and this was followed down to where the vas dove deep in the pelvis, however came in with some very thickened area of the pelvis and I anticipate this is where the patient had his vas transected from his previous bladder surgery. Medially as well there is a great deal of thick tissue and adhesions present and given that this was an indirect and not a direct I did not feel that I needed to pursue this area further or dissect this out any additional amount. Thus, after mobilizing this off the cord structures, the vas and while visualizing the internal ring the right side was taken down in much the same manner. This was a larger hernia sac that I was able to mobilize and also had a large lipoma of the cord present. Once again, this was mobilized out of the inguinal canal, transected proximally with first cauterizing the stalk and then transecting it with cautery, and then eventually after the peritoneum was mobilized off the vessels and this was followed medially off the vas and I was able to dissect further actually towards Yadiel's ligament on this side and was able to visualize the top of Yadiel's ligament, but once again no evidence of direct hernia was appreciated. Thus, I felt further dissection where he has had previous bladder surgery with these thick adhesions and even adhesions/scar tissue on the posterior rectus muscle in this area was not required to put in adequate closure. In any case, after adequately mobilizing this area, there was some minimal oozing from the vas in this area and this was controlled, but just given the oozing in the previous surgery I did put some Matt in the dissection bilaterally and all the powder was still white when I placed the mesh on both sides that were pressed into place and the peritoneum was closed with running #3-0 V-Loc suture. All trocars were removed under direct visualization. #4-0 Vicryl was used to close all skin incisions. Steri-Strips and a dry sterile dressing was applied. The patient was brought to recovery room awake, alert, hemodynamically stable. Sponge and needle counts correct times two.
[2019-12-22] MEDS ORDERED: NORCO, ANEXSIA 5/325MG TABLET (HYDROcodone/ACETAMINOPHEN) PO PRN (10:30)
[2019-12-22 12:15] VITALS: BP 162/94
== END 2019-12-22 12:30 | disposition home or self-care (01) ==
LOC: M SDC 06:08
PROVIDERS: ATTEND Surgery
DX: K40.00 Bilateral inguinal hernia, with obstruction, without gangrene, not specified as recurrent (principal); K56.50 Intestinal adhesions [bands], unspecified as to partial versus complete obstruction; N32.89 Other specified disorders of bladder; I10 Essential (primary) hypertension; E78.00 Pure hypercholesterolemia, unspecified; R12 Heartburn; Z85.46 Personal history of malignant neoplasm of prostate; Z92.3 Personal history of irradiation; N26.1 Atrophy of kidney (terminal); N28.9 Disorder of kidney and ureter, unspecified; Z87.891 Personal history of nicotine dependence; Z98.49 Cataract extraction status, unspecified eye; Z79.899 Other long term (current) drug therapy
CPT/HCPCS: 49650; 93005; C1781; J0131; J0330; J0690; J1100; J1885; J2250; J2405; J3010

== ENCOUNTER → 2020-01-04 | Outpatient (REF) | payer MEDICARE, OTHER ==
[~2020-01-04] MED LIST changes: -LIDOCAINE 1% MDV 20ML VIAL SQ PRN
== END ==
LOC: M LABSMT 09:09
PROVIDERS: ATTEND Urology
DX: N35.919 Unspecified urethral stricture, male, unspecified site (principal); Z85.46 Personal history of malignant neoplasm of prostate

== ENCOUNTER → 2020-01-31 | Outpatient (CLI) | payer MEDICARE, OTHER ==
--- NOTE | 2020-01-31 14:09 | REP ---
CT ABDOMEN/PELVIS WITHOUT CONTRAST: CT abdomen/pelvis performed without oral or IV contrast. Sagittal and coronal reconstruction images are performed. Visualized lung bases demonstrate a tiny calcified granuloma on the right. Once again, there are several hypodensities in the liver compatible with cysts, appearing similar compared to prior studies. Spleen is normal in size with no gross abnormality. Adrenal glands are normal. Pancreas is grossly unremarkable. Right renal atrophy is again noted. There are four scattered subcentimeter calcifications scattered throughout the right kidney. There is moderate dilatation of the right renal pelvis and proximal right ureter. There is again evidence of a ureteroneocystostomy. Left kidney demonstrates scattered cysts and several subcentimeter intrarenal calculi inferiorly. There is no left hydroureteronephrosis. There is a fusiform aneurysm of the distal abdominal aorta below the level of the renal arteries. This measures 4.9 cm in maximum AP dimension by 4.5 cm in maximum transverse dimension. Compared to the study of 10/15/2019, there may be slight increase in size, at that time, the aneurysm measured 4.7 x 4.4 cm. There is slight extension into the origin of the right common iliac artery, which measures 2.3 cm in diameter. There is no adenopathy. There is no free air or free fluid. There is no bowel wall thickening. The patient appears to have had internal repair of inguinal hernias with mild edema in the soft tissues just deep to the inguinal canals. Urinary bladder is mildly distended and grossly unremarkable. There is a small hiatal hernia. IMPRESSION: Small hiatal hernia. Stable liver cysts. Once again, there is moderate right renal atrophy, left renal cysts, and bilateral renal calculi. Fusiform aneurysm distal abdominal aorta measures 4.9 x 4.5 cm, previously 4.7 x 4.4 cm. Electronically Signed by Varghese Friedman MD 02/01/2020 07:08 P
== END ==
LOC: M RAD 12:23
PROVIDERS: ATTEND Physician Assistant
DX: I71.4 Abdominal aortic aneurysm, without rupture (principal)

== ENCOUNTER → 2020-02-09 | Outpatient (CLI) | payer MEDICARE, OTHER | LOC: M LABSMTC 10:29 | PROVIDERS: ATTEND Anesthesiology | DX: Z01.818 Encounter for other preprocedural examination (principal); Z03.818 Encounter for observation for suspected exposure to other biological agents ruled out; Z11.59 Encounter for screening for other viral diseases | CPT/HCPCS: C9803; U0003 ==

== ENCOUNTER 2020-02-12 07:53 | Day surgery (SDC) | payer MEDICARE, OTHER ==
[~2020-02-12] VITALS: Ht 172.7 cm; Wt 89.8 kg
[~2020-02-12 07:53] MED LIST changes: +BALANCED SALT IRRIGATION SOLUTION 500ML BAG (FOR OR EYE MACHINE) As Ordered ONE; +CEFUROXIME 1MG/0.1ML INTRACAMERAL INJ As Ordered ONE; +CYCLOPENTOLATE 2% OPHTH SOLN 2ML BTL OS ONE; +HEALON DUET PRO(HEALON 10MG/ML 0.55ML & HEALON ENDOCOAT 30MG/ML 0.85ML) As Ordered ONE; +LIDOCAINE 1% SDV 5ML VIAL As Ordered ONE; +LIDOCAINE 3.5 % 1ML OPHTH TOPICAL GEL OU ONE; +MIDAZOLAM INJ 2MG/2ML VIAL (J2250 PER 1MG) As Ordered ONE; +OFLOXACIN 0.3 % (OCUFLOX) OPTH SOL 5ML OS ONE; +PHENYLEPHRINE 2.5% OPHTH SOL 2ML OS ONE; +PHENYLEPHRINE HCL 10 % OPHTH. SOL 5ML OS PRN; +POVIDONE-IODINE 5% OPHTH PREP SOL 30ML As Ordered ONE; +TROPICAMIDE 1% OPHTH SOLN 2ML OS ONE; +fentaNYL 250 MCG/5 ML INJECTION (J3010) As Ordered ONE
[2020-02-12 09:50] VITALS: BP 113/76
--- NOTE | 2020-02-14 06:25 | RO ---
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 PROCEDURE PERFORMED: Phacoemulsification with posterior chamber intraocular lens implantation with use of pupil expansion device and Optiwave Refractive Analysis. Lens used was an AU00T0, 15.0 diopters. SURGEON: Thelma Aburto MD STENO POOL SUPERVISOR: ANESTHESIA: Topical with sedation. DESCRIPTION OF PROCEDURE: Patient was prepped and draped in the usual fashion. Lid speculum was placed between the lids. The eye was fixated. A stab incision was made into the anterior chamber. 1% nonpreserved lidocaine was instilled, and viscoelastic was instilled. The eye was refixated, and a 2.4 mm keratome was used to make a clear corneal temporal limbal incision. Malyugin ring was placed into its inserted and injected into the eye, first the distal scroll engaging the iris, then the proximal scroll engaging the iris. The other scrolls were placed with a manipulation hook. Capsulorrhexis was then begun in a circular fashion with capsulorrhexis forceps; and once the capsulorrhexis was done, hydrodissection was performed. The nucleus was grooved in two meridians. The nucleus was then cracked into four quadrants. Each quadrant was removed with the phacoemulsification unit. Any remaining cortex was removed with the irrigation and aspiration (I and A). The capsular bag was refilled with viscoelastic. The Optiwave Refractive Analysis (ORA) was placed into position and measured, and the 15.0 diopter lens was the one that was chosen. The lens was inserted into the capsular bag with no difficulty. Any remaining viscoelastic was removed with the I and A. The Malyugin ring, before I and A removal, was removed by dis-inserting from the iris at the four scrolls and extracting from the eye with the manipulation hook. Again, any remaining viscoelastic was removed with the I and A. The wound was hydrated, and balanced salt solution (BSS) and cefuroxime were instilled. Patient tolerated this procedure well and went to recovery room in stable condition.
== END 2020-02-12 10:05 | disposition home or self-care (01) ==
LOC: M SDC 07:53
PROVIDERS: ATTEND Ophthalmology
DX: H25.12 Age-related nuclear cataract, left eye (principal); H57.03 Miosis; I10 Essential (primary) hypertension; K21.9 Gastro-esophageal reflux disease without esophagitis; E78.00 Pure hypercholesterolemia, unspecified; Z85.46 Personal history of malignant neoplasm of prostate; Z92.3 Personal history of irradiation; Z79.899 Other long term (current) drug therapy
CPT/HCPCS: 66982; 92015; J2250; J3010; V2632

== ENCOUNTER → 2020-05-28 | Outpatient (CLI) | payer MEDICARE, OTHER ==
[~2020-05-28] MED LIST changes: +AMLO1TAB24 PO; -AMLO5TAB6 PO; -BALANCED SALT IRRIGATION SOLUTION 500ML BAG (FOR OR EYE MACHINE) As Ordered ONE; -CEFUROXIME 1MG/0.1ML INTRACAMERAL INJ As Ordered ONE; -CYCLOPENTOLATE 2% OPHTH SOLN 2ML BTL OS ONE; -HEALON DUET PRO(HEALON 10MG/ML 0.55ML & HEALON ENDOCOAT 30MG/ML 0.85ML) As Ordered ONE; -LIDOCAINE 1% SDV 5ML VIAL As Ordered ONE; -LIDOCAINE 3.5 % 1ML OPHTH TOPICAL GEL OU ONE; -MIDAZOLAM INJ 2MG/2ML VIAL (J2250 PER 1MG) As Ordered ONE; -OFLOXACIN 0.3 % (OCUFLOX) OPTH SOL 5ML OS ONE; -PHENYLEPHRINE 2.5% OPHTH SOL 2ML OS ONE; -PHENYLEPHRINE HCL 10 % OPHTH. SOL 5ML OS PRN; -POVIDONE-IODINE 5% OPHTH PREP SOL 30ML As Ordered ONE; -TROPICAMIDE 1% OPHTH SOLN 2ML OS ONE; -fentaNYL 250 MCG/5 ML INJECTION (J3010) As Ordered ONE
--- NOTE | 2020-06-05 13:08 | REP ---
CT ABDOMEN AND PELVIS WITHOUT INTRAVENOUS (IV) OR ORAL CONTRAST HISTORY: Abdominal aortic aneurysm. COMPARISON: CT studies from 01/31/2020 and 10/15/2019. A more remote prior CT study from 01/03/[address] FINDINGS: Digital preliminary scoop driver radiograph shows an unremarkable bowel gas pattern. The lung bases are clear on axial CT images. No evidence of pleural effusion or upper abdominal ascites is seen. There are multiple hepatic cysts in the left and right lobe of the liver predominantly superiorly unchanged. No new liver lesion is seen. The gallbladder is unremarkable. No abnormality is noted in the pancreas. Normal adrenal glands are seen. Spleen is unremarkable. There are several cortical cysts in the left kidney. Multiple intrarenal calculi are seen on the left without evidence of hydronephrosis. The right kidney is markedly atrophic and contains one or two calcifications as well. No right-sided hydronephrosis is seen. These findings are unchanged. There are multiple opaque densities in the lumen of the gastrointestinal tract, which may be partially digested antacids or other ingested material. Bowel loops are otherwise unremarkable. No abdominal wall defect is appreciated. The previously noted infrarenal abdominal aortic aneurysm is again seen measuring 4.8 x 4.5 cm in greatest anteroposterior x transverse dimension. This is felt to be unchanged from the most recent prior study of 01/31/2020. In December of 2018, the aneurysm measured 4.3 cm in anteroposterior dimension. There is no perianeurysmal fibrosis. The common iliac arteries are not aneurysmal. Moderate vascular calcification is seen. No evidence of hemorrhage. Urinary bladder, seminal vesicle, and prostate are unremarkable. IMPRESSION: * A 4.8 cm infrarenal abdominal aortic aneurysm unchanged in size from the most recent prior CT, but 5 mm larger than on December 2018. * Marked right renal atrophy. Bilateral nephrolithiasis without hydronephrosis. * Stable renal and hepatic cysts. MTDD
== END ==
LOC: M RAD 07:00
PROVIDERS: ATTEND Physician Assistant
DX: I71.4 Abdominal aortic aneurysm, without rupture (principal); K76.89 Other specified diseases of liver; N13.2 Hydronephrosis with renal and ureteral calculous obstruction

== ENCOUNTER → 2020-12-13 | Outpatient (CLI) | payer MEDICARE, OTHER ==
[~2020-12-13] MED LIST changes: -LISI-542 PO; +LISI-898 PO
--- NOTE | 2020-12-13 08:32 | REP ---
INDICATION: AAA. COMPARISON: 05/28/2020 the latest prior TECHNIQUE: Limited noncontrast enhanced helical technique FINDINGS: The lung bases are unchanged. Limited evaluation of the solid intra-organs and gallbladder show no changes. Limited evaluation of the pancreas, adrenal glands, and kidneys show no changes from the prior exam. There are chronic bilateral renal changes status quo. Limited evaluation of the abdominal aorta shows a 5 by 4.5 cm sized infrarenal abdominal aortic aneurysm measured in the AP dimension and width respectively. This measurement is outer wall to outer wall. No abnormal Alayna aortic densities have developed. No centrally displaced calcium has developed. There is no significant change in the bowel loops or the mesenteries. There is no evidence of free fluid or free air. There is no significant change in appearance of the imaged osseous structures. IMPRESSION: 1. Limited evaluation of the abdominal aorta shows an infrarenal aneurysm as described above. Previously, this aneurysm measured approximately 4.9 by 4.5 cm using the same parameters. 2. Chronic renal changes and other chronic changes status quo <Electronically signed by Chico Torres > 12/13/20 [id number]
== END ==
LOC: M RAD 07:09
PROVIDERS: ATTEND Physician Assistant
DX: I71.4 Abdominal aortic aneurysm, without rupture (principal)

== ENCOUNTER → 2021-01-01 | Outpatient (REF) | payer MEDICARE, OTHER | LOC: M PLALAB 12:51 | PROVIDERS: ATTEND Urology | DX: N40.1 Benign prostatic hyperplasia with lower urinary tract symptoms (principal); R39.12 Poor urinary stream; N35.919 Unspecified urethral stricture, male, unspecified site; Z85.46 Personal history of malignant neoplasm of prostate ==

== ENCOUNTER → 2021-03-14 | Outpatient (CLI) | payer MEDICARE, OTHER ==
[~2021-03-14] MED LIST changes: +PROHANCE 279.3MG/ML 15ML VIAL As Ordered ONE; +PROHANCE 279.3MG/ML 5ML VIAL As Ordered ONE
--- NOTE | 2021-03-14 15:47 | REP ---
INDICATION: AAA. COMPARISON: Comparison CT abdomen and pelvis December 13, 2020.. TECHNIQUE: Axial and coronal T2 weighted spin echo images are acquired. A sagittal T2 weighted sequences acquired. In addition 3D MR angiography is acquired following the intravenous injection of 20 mL of intravenous ProHance. Maximum intensity projection images and source images are reviewed. FINDINGS: The CT study showed a 4.9 cm infrarenal abdominal aortic aneurysm. On axials T2 weighted images today, the AP dimension is 5.1 cm. There is mural thrombus visible in the aneurysm. No perianeurysmal edema or streakiness. On MR angiography, the aneurysmal lumen measures up to 3.4 cm in anteroposterior dimension. The aneurysm extends to the aortic bifurcation but does not appear to extend into the iliac arteries. The proximal end of the aneurysm is approximately 3.8 cm below the origin of the renal arteries. The right renal artery is quite small in the right kidney is markedly atrophic as seen on CT. There are multiple bilateral renal cortical cysts. The largest of these is in the midpole position of the left kidney. It measures 4.0 cm. There are multiple hepatic cysts as well. There is atherosclerotic irregularity of the common and external iliac arteries bilaterally. The proximal internal iliac arteries are patent. Flow is observed in the inferior mesenteric artery arising at the proximal and of the aneurysm. Celiac and SMA origins are unremarkable. IMPRESSION: Infrarenal abdominal aortic aneurysm as above. Maximum AP dimension on today's MR images 5 0.1 cm. <Electronically signed by Reji Theodore > 03/14/21 [id number]
== END ==
LOC: M RAD 12:46
PROVIDERS: ATTEND Surgery Vascular Surgery
DX: I71.4 Abdominal aortic aneurysm, without rupture (principal); N28.1 Cyst of kidney, acquired; K76.89 Other specified diseases of liver
CPT/HCPCS: A9576; C8902; C8920

== ENCOUNTER → 2021-08-28 | Outpatient (REF) | payer MEDICARE, OTHER ==
[~2021-08-28] MED LIST changes: -PROHANCE 279.3MG/ML 15ML VIAL As Ordered ONE; -PROHANCE 279.3MG/ML 5ML VIAL As Ordered ONE
== END ==
LOC: M LAB REF 12:57
PROVIDERS: ATTEND Nurse Practitioner Family
DX: E83.42 Hypomagnesemia (principal)

== ENCOUNTER → 2021-12-30 | Outpatient (CLI) | payer MEDICARE, OTHER ==
[~2021-12-30] MED LIST changes: -LISI-898 PO; +LISI5TAB11 PO
== END ==
LOC: M PLALAB 09:27
PROVIDERS: ATTEND Urology
DX: Z85.46 Personal history of malignant neoplasm of prostate (principal)

== ENCOUNTER → 2022-05-27 | Outpatient (CLI) | payer MEDICARE, OTHER ==
[~2022-05-27] MED LIST changes: +ALLO300T2 PO; +KP F1200 PO; +TAMS1CAP17 PO; +TURM500C PO
== END ==
LOC: M LABSMTC 09:29
PROVIDERS: ATTEND Anesthesiology
DX: Z01.818 Encounter for other preprocedural examination (principal); Z11.52 Encounter for screening for COVID-19

== ENCOUNTER → 2023-01-06 | Outpatient (CLI) | payer MEDICARE, OTHER ==
[~2023-01-06] MED LIST changes: +POTA-298 PO; -POTA1TAB14 PO
== END ==
LOC: M PLALAB 09:16
PROVIDERS: ATTEND Urology
DX: Z85.46 Personal history of malignant neoplasm of prostate (principal)

== ENCOUNTER → 2023-01-13 | Outpatient (CLI) | payer MEDICARE, OTHER | LOC: M PLAIMG 10:15 | PROVIDERS: ATTEND Nurse Practitioner Family | DX: N20.0 Calculus of kidney (principal) ==

== ENCOUNTER 2023-10-20 11:07 | Emergency (ER) | payer MEDICARE, OTHER ==
[~2023-10-20] VITALS: Ht 175.3 cm; Wt 92.2 kg
[~2023-10-20 11:07] MED LIST changes: -HYDR-3910 PO; +HYDR25TA87 PO; -OXYB5TAB10 PO; +OXYB5TAB14 PO
[2023-10-20] MEDS ORDERED: TRAM50TA2 PO (12:40)
[2023-10-20 13:00] VITALS: BP 135/90; TEMP 97.4; O2SAT 100
== END 2023-10-20 13:02 | disposition home or self-care (01) ==
LOC: M ED 11:07
DX: S92.535A Nondisplaced fracture of distal phalanx of left lesser toe(s), initial encounter for closed fracture (principal); W22.8XXA Striking against or struck by other objects, initial encounter; Y92.009 Unspecified place in unspecified non-institutional (private) residence as the place of occurrence of the external cause; Y93.01 Activity, walking, marching and hiking; Y99.8 Other external cause status; I12.9 Hypertensive chronic kidney disease with stage 1 through stage 4 chronic kidney disease, or unspecified chronic kidney disease; E78.5 Hyperlipidemia, unspecified; K21.9 Gastro-esophageal reflux disease without esophagitis; N18.30 Chronic kidney disease, stage 3 unspecified; Z87.442 Personal history of urinary calculi; Z85.46 Personal history of malignant neoplasm of prostate; Z79.899 Other long term (current) drug therapy

== ENCOUNTER → 2023-11-11 | Outpatient (CLI) | payer MEDICARE, OTHER | LOC: M SOG 08:51 | PROVIDERS: ATTEND Physician Assistant | DX: M79.675 Pain in left toe(s) (principal); S92.512A Displaced fracture of proximal phalanx of left lesser toe(s), initial encounter for closed fracture; X58.XXXA Exposure to other specified factors, initial encounter; Y92.9 Unspecified place or not applicable; Y93.9 Activity, unspecified; Y99.9 Unspecified external cause status ==

== ENCOUNTER → 2023-12-02 | Outpatient (CLI) | payer MEDICARE, OTHER | LOC: M SOG 09:48 | PROVIDERS: ATTEND Physician Assistant | DX: M79.675 Pain in left toe(s) (principal); S92.412D Displaced fracture of proximal phalanx of left great toe, subsequent encounter for fracture with routine healing ==

== ENCOUNTER → 2023-12-30 | Outpatient (CLI) | payer MEDICARE, OTHER | LOC: M SOG 12:35 | PROVIDERS: ATTEND Physician Assistant | DX: M79.675 Pain in left toe(s) (principal); S92.512D Displaced fracture of proximal phalanx of left lesser toe(s), subsequent encounter for fracture with routine healing ==

== ENCOUNTER → 2024-01-11 | Outpatient (REF) | payer MEDICARE, OTHER | LOC: M LAB REF 17:07 | PROVIDERS: ATTEND Urology | DX: Z85.46 Personal history of malignant neoplasm of prostate (principal) ==

== ENCOUNTER → 2024-01-11 | Outpatient (REF) | payer MEDICARE, OTHER ==
[2024-01-11 19:00] LABS: PERCENT SATURATION 7.4 % (19.7-50.0)
[2024-01-11 19:02] LABS: FERRITIN 7.7 NG/ML (10.5-307.3)
== END ==
LOC: M LAB REF 17:08
PROVIDERS: ATTEND Nurse Practitioner Family
DX: D50.9 Iron deficiency anemia, unspecified (principal); Z85.46 Personal history of malignant neoplasm of prostate

== ENCOUNTER → 2024-01-31 | Outpatient (CLI) | payer MEDICARE, OTHER | LOC: M PLAIMG 09:24 | PROVIDERS: ATTEND Urology | DX: N20.0 Calculus of kidney (principal) ==

== ENCOUNTER → 2024-01-31 | Outpatient (CLI) | payer MEDICARE, OTHER | LOC: M SOG 07:57 | PROVIDERS: ATTEND Physician Assistant | DX: S92.412D Displaced fracture of proximal phalanx of left great toe, subsequent encounter for fracture with routine healing (principal); S92.512D Displaced fracture of proximal phalanx of left lesser toe(s), subsequent encounter for fracture with routine healing ==

== ENCOUNTER → 2025-04-02 | Outpatient (REF) | payer MEDICARE, OTHER ==
[~2025-04-02] MED LIST changes: -FLOM0.4C39 PO; +SENN-225 PO; -SENO8.6T5 PO; +TAMS-18 PO
[2025-04-02 17:52] LABS: APPEARANCE, URINE CLEAR (CLEAR); BACTERIA, URINE AUTO NEGATIVE (NEGATIVE); BILIRUBIN, URINE AUTO NEGATIVE (NEGATIVE); BLOOD, URINE BLOOD NEGATIVE (NEGATIVE); GLUCOSE, URINE (UA) AUTO NEGATIVE (NEGATIVE); KETONE, URINE AUTO NEGATIVE (NEGATIVE); LEUKOCYTE ESTERASE, URINE AUTO NEGATIVE (NEGATIVE); NITRITE, URINE AUTO NEGATIVE (NEGATIVE); PROTEIN, URINE AUTO NEGATIVE (NEGATIVE); RBC, URINE AUTO 0 /HPF (0-3); SPECIFIC GRAVITY URINE AUTO 1.013 (1.002-1.035); SQUAMOUS EPITHELIAL CELL UR AU 0 /HPF (0-6); UROBILINOGEN, URINE AUTO 0.2 mg/dL (0.0-2.0); WBC, URINE AUTO 0 /HPF (0-3)
[2025-04-02 18:33] LABS: ALT/SGPT 36.0 U/L (7.0-40); AST/SGOT 26.0 U/L (<34); CALCIUM LEVEL 10.4 MG/DL (8.3-10.6); CARBON DIOXIDE LEVEL 29.0 MMOL/L (20-31); CHLORIDE LEVEL 100.0 MMOL/L (98-107); CHOLESTEROL LEVEL 121.0 MG/DL (<200); CHOLESTEROL RISK RATIO 2.39 (<5); CREATININE FOR GFR 1.91 MG/DL (0.70-1.30); GLOMERULAR FILTRATION RATE 36.6 (>42); LDL CHOLESTEROL 48.8 MG/DL (<100); NON-HDL-C 70.4 MG/DL; POTASSIUM SERUM 5.1 MMOL/L (3.5-5.1); SODIUM LEVEL 140.0 MMOL/L (136-145); TRIGLYCERIDES LEVEL 108.0 MG/DL (<150)
[2025-04-02 18:34] LABS: TOTAL 25(OH) VITAMIN D 55.4 NG/ML (20.0-100.0)
[2025-04-02 18:37] LABS: BASO # 0.1 10^3/uL (0.0-0.2); BASO % 1.1 % (0.0-1.0); EOS # 0.1 10^3/uL (0.0-0.5); EOS % 1.3 % (0.0-3.0); LYMPH # 0.9 10^3/uL (1.5-5.0); LYMPH % 18.4 % (24.0-44.0); MONO # 0.5 10^3/uL (0.0-0.8); MONO % 11.0 % (2.0-8.0); NEUTROPHILS # 3.1 10^3/uL (1.5-8.5); NEUTROPHILS % 67.8 % (36.0-66.0); PLATELET COUNT, AUTOMATED 162 10^3/uL (150-450)
[2025-04-02 18:53] LABS: CREATININE, URINE 86.9 MG/DL; MALB URINE SIEMENS 37.0 MG/L; MAU/CREAT RATIO 42.5 MCG/MG (0.0-30.0)
[2025-04-02 18:58] LABS: ESTIMATED AVERAGE GLUCOSE 108.0 MG/DL (60-110)
== END ==
LOC: M SFHCLERA 10:10
PROVIDERS: ATTEND Internal Medicine
DX: Z00.00 Encounter for general adult medical examination without abnormal findings (principal); I10 Essential (primary) hypertension; Z79.899 Other long term (current) drug therapy